=== PATIENT | female | born 1985 | race Caucasian/White ===

== ENCOUNTER 2016-08-21 16:50 | Emergency (ER) | payer OTHER | END 2016-08-21 20:15 | disposition home or self-care (01) | LOC: ER1 16:50 | DX: S39.012A Strain of muscle, fascia and tendon of lower back, initial encounter (principal); G89.29 Other chronic pain; F17.210 Nicotine dependence, cigarettes, uncomplicated; X58.XXXA Exposure to other specified factors, initial encounter | CPT/HCPCS: 72100; 81001; 84703; 99283 ==